=== PATIENT | female | born 1960 | race Two or more races ===

== ENCOUNTER 2016-05-05 10:28 | Emergency (ER) | payer MEDICARE, OTHER ==
[2016-05-05 10:45] VITALS: BP 123/71
[2016-05-05] MEDS ORDERED: ASPIRIN 81 MG TABLET, CHEWABLE PO ONE (10:51)
--- NOTE | 2016-05-05 10:52 | ER Document Report ---
ED Medical Screen (RME) - General Stated Complaint: DIZZINESS Notes: She complains of dizziness, feels like she is going to pass out, and left-sided facial numbness intermittently for the last couple of months. Symptoms have been worse for the last 3 days. Complains of feeling pressure to the back of her head. Denies recent illness. Patient has hypertension, diabetes, and thyroid disease. I have greeted and performed a rapid initial assessment of this patient. A comprehensive ED assessment and evaluation of the patient, analysis of test results and completion of the medical decision making process will be conducted by additional ED providers. TRAVEL OUTSIDE OF THE [place] IN LAST 30 DAYS: No - Related Data Allergies/Adverse Reactions: oxycodone HCl [From Percocet] Allergy (Verified 05/05/16 10:48) THROAT CLOSES Shellfish * [Shellfish] Allergy (Verified 05/05/16 10:48) Hives Past Medical History - Past Medical History Cardiac Medical History: Reports: Hx Hypercholesterolemia, Hx Hypertension Denies: Hx Coronary Artery Disease, Hx Heart Attack Pulmonary Medical History: Reports: Hx Asthma Denies: Hx Bronchitis, Hx COPD, Hx Pneumonia Neurological Medical History: Denies: Hx Cerebrovascular Accident, Hx Seizures Endocrine Medical History: Reports: Hx Diabetes Mellitus Type 2 GI Medical History: Reports: Hx Gastroesophageal Reflux Disease, Hx Hiatal Hernia, Hx Ulcer. Denies: Hx Hepatitis Musculoskeltal Medical History: Denies Hx Arthritis Psychiatric Medical History: Reports: Hx Depression Infectious Medical History: Denies: Hx Hepatitis Past Surgical History: Reports: Hx Hysterectomy, Hx Orthopedic Surgery - bilat foot; R shoudler; bilat hand, Hx Tonsillectomy. Denies: Hx Mastectomy, Hx Open Heart Surgery, Hx Pacemaker - Immunizations Hx Diphtheria, Pertussis, Tetanus Vaccination: Yes - unk Physical Exam - Vital signs Vitals: Temp Pulse Resp BP Pulse Ox 97.7 F 71 20 123/71 96 05/05/16 10:44 05/05/16 10:44 05/05/16 10:44 05/05/16 10:44 05/05/16 10:44 - Respiratory Notes: Lungs clear to auscultation. No respiratory distress. - Cardiovascular Rhythm: Regular Heart sounds: Normal auscultation Course - Vital Signs Vital signs: Temp Pulse Resp BP Pulse Ox 97.7 F 71 20 123/71 96 05/05/16 10:44 05/05/16 10:44 05/05/16 10:44 05/05/16 10:44 05/05/16 10:44
[2016-05-05 11:44] LABS: ABSOLUTE BASOPHILS # (AUTO) 0.1 10^3/uL (0.0-0.2); ABSOLUTE EOSINOPHILS # (AUTO) 0.4 10^3/uL (0.0-0.6); ABSOLUTE LYMPHOCYTES (AUTO) 2.6 10^3/uL (0.5-4.7); ABSOLUTE MONOCYTES (AUTO) 0.5 10^3/uL (0.1-1.4); ABSOLUTE NEUT (AUTO) 4.4 10^3/uL (1.7-8.2); BASOPHILS % (AUTO) 1.5 % (0-2); EOSINOPHILS % (AUTO) 4.7 % (0-6); HEMATOCRIT 41.7 % (36.0-47.0); HEMOGLOBIN 14.1 g/dL (12.0-15.5); HGB HCT DIFFERENCE 0.6; LYMPHOCYTES % (AUTO) 32.5 % (13-45); MEAN CORPUSCULAR HGB CONC 33.9 g/dL (32.0-36.0); MEAN CORPUSCULAR VOLUME 89 fl (80-97); MONOCYTES % (AUTO) 6.8 % (3-13); RED BLOOD COUNT 4.71 10^6/uL (3.72-5.28); RED CELL DISTRIBUTION WIDTH 13.7 % (11.5-14.0); SEGMENTED NEUTROPHILS % (AUTO) 54.5 % (42-78)
[2016-05-05 11:57] LABS: ALANINE AMINOTRANSFERASE 42 U/L (9-52); ALBUMIN 4.3 g/dL (3.5-5.0); ALKALINE PHOSPHATASE 117 U/L (38-126); ANION GAP 14 (5-19); ASPARTATE AMINO TRANSFERASE 28 U/L (14-36); BILIRUBIN,DIRECT 0.3 mg/dL (0.0-0.4); BILIRUBIN,TOTAL 0.8 mg/dL (0.2-1.3); BLOOD UREA NITROGEN 10 mg/dL (7-20); CALCIUM 10.2 mg/dL (8.4-10.2); CARBON DIOXIDE 22 mmol/L (22-30); CHLORIDE 106 mmol/L (98-107); CREATINE KINASE 56 U/L (30-135); CREATININE RESULT 0.55 mg/dL (0.52-1.25); GLUCOSE 191 mg/dL (75-110); POTASSIUM 4.4 mmol/L (3.6-5.0); SODIUM 142.2 mmol/L (137-145); TOTAL PROTEIN 7.5 g/dL (6.3-8.2)
[2016-05-05 11:58] LABS: PROTHROMBIN TIME 11.8 SEC (11.4-15.4)
[2016-05-05 12:15] LABS: CREATINE KINASE MB < 0.22 ng/mL (<4.55); TROPONIN I < 0.012 ng/mL
--- NOTE | 2016-05-05 20:22 | EKG REPORT ---
SEVERITY:- ABNORMAL ECG - SINUS RHYTHM LEFT VENTRICULAR HYPERTROPHY : Confirmed by: João Reis 05-May-2016 20:21:35
== END 2016-05-05 17:35 | disposition left against medical advice (07) ==
LOC: ER 10:28
DX: Z53.9 Procedure and treatment not carried out, unspecified reason (principal); R42 Dizziness and giddiness
CPT/HCPCS: 93005; 99281; 36415; 82553; 82550; 85025; 85610; 80053; 84484; 71010; 93010; A9270

== ENCOUNTER → 2016-09-03 | Outpatient (CLI) | payer MEDICARE, OTHER ==
[2016-09-03 15:15] LABS: ABSOLUTE BASOPHILS # (AUTO) 0.1 10^3/uL (0.0-0.2); ABSOLUTE EOSINOPHILS # (AUTO) 0.3 10^3/uL (0.0-0.6); ABSOLUTE LYMPHOCYTES (AUTO) 3.8 10^3/uL (0.5-4.7); ABSOLUTE MONOCYTES (AUTO) 0.5 10^3/uL (0.1-1.4); ABSOLUTE NEUT (AUTO) 4.3 10^3/uL (1.7-8.2); BASOPHILS % (AUTO) 1.3 % (0-2); EOSINOPHILS % (AUTO) 3.8 % (0-6); HEMATOCRIT 41.6 % (36.0-47.0); HEMOGLOBIN 14.2 g/dL (12.0-15.5); LYMPHOCYTES % (AUTO) 41.8 % (13-45); MEAN CORPUSCULAR HEMOGLOBIN 31.2 pg (27.0-33.4); MEAN CORPUSCULAR HGB CONC 34.1 g/dL (32.0-36.0); MEAN CORPUSCULAR VOLUME 92 fl (80-97); RED BLOOD COUNT 4.55 10^6/uL (3.72-5.28); RED CELL DISTRIBUTION WIDTH 13.3 % (11.5-14.0); SEGMENTED NEUTROPHILS % (AUTO) 47.1 % (42-78); WHITE BLOOD COUNT 9.1 10^3/uL (4.0-10.5)
[2016-09-03 15:16] LABS: APPEARANCE,URINE CLEAR; BILIRUBIN,URINE NEGATIVE (NEGATIVE); GLUCOSE, URINE 50 mg/dL (NEGATIVE); KETONES,URINE NEGATIVE (NEGATIVE); LEUKOCYTE ESTERASE,URINE NEGATIVE (NEGATIVE); NITRITE,URINE NEGATIVE (NEGATIVE); PROTEIN,URINE NEGATIVE (NEGATIVE); URINE SPECIFIC GRAVITY 1.004; UROBILINOGEN,URINE NEGATIVE mg/dL (<2.0)
[2016-09-03 15:37] LABS: ALANINE AMINOTRANSFERASE 43 U/L (9-52); ALBUMIN 4.5 g/dL (3.5-5.0); ALKALINE PHOSPHATASE 118 U/L (38-126); AMYLASE 77 U/L (30-110); ANION GAP 12 (5-19); ASPARTATE AMINO TRANSFERASE 24 U/L (14-36); BILIRUBIN,DIRECT 0.3 mg/dL (0.0-0.4); BILIRUBIN,TOTAL 0.8 mg/dL (0.2-1.3); BLOOD UREA NITROGEN 13 mg/dL (7-20); CALCIUM 10.2 mg/dL (8.4-10.2); CARBON DIOXIDE 26 mmol/L (22-30); CHLORIDE 101 mmol/L (98-107); CREATININE RESULT 0.58 mg/dL (0.52-1.25); GLUCOSE 202 mg/dL (75-110); POTASSIUM 4.8 mmol/L (3.6-5.0); SODIUM 138.5 mmol/L (137-145); TOTAL PROTEIN 7.9 g/dL (6.3-8.2)
== END ==
LOC: OD 14:03
PROVIDERS: ATTEND Specialist
DX: R10.9 Unspecified abdominal pain (principal); K76.0 Fatty (change of) liver, not elsewhere classified
CPT/HCPCS: 36415; 80053; 81001; 82150; 83690; 85025; 87086

== ENCOUNTER 2016-09-10 07:34 | Day surgery (SDC) | payer MEDICARE, OTHER ==
[2016-09-10] MEDS ORDERED: GLYCOPYRROLATE INJ 0.4 MG/2 ML VIAL ONE (07:39)
[2016-09-10] MEDS ORDERED: MIDAZOLAM 2 MG/2 ML INJ ONE (07:39)
[2016-09-10] MEDS ORDERED: NALOXONE HCL INJ/PF 0.4 MG/1 ML SDV ONE (07:39)
[2016-09-10] MEDS ORDERED: ONDANSETRON HCL INJ/PF 4 MG/2 ML SDV ONE (07:39)
[2016-09-10] MEDS ORDERED: EPINEPHRINE INJ 1 MG/10 ML DISP.SYRIN ONE (07:40)
[2016-09-10] MEDS ORDERED: FENTANYL CITRATE INJ/PF 100 MCG/2 ML AMPUL ONE (07:40)
[2016-09-10] MEDS ORDERED: FLUMAZENIL INJ 0.5 MG/5 ML VIAL IV ONE (07:40)
[2016-09-10 09:53] VITALS: BP 113/59
--- NOTE | 2016-09-10 15:29 | OPERATIVE REPORT E ---
Operative Report NAME: CHRIST BERNAL : 1960 AGE: 56Y DATE OF SURGERY: 09/10/2016 ROOM: PREOPERATIVE DIAGNOSES: 1. Abdominal pain. 2. Reflux. POSTOPERATIVE DIAGNOSES: 1. Esophagitis, mild. 2. Diminutive 2 mm polyp mid esophagus, small to biopsy. 3. Gastritis, mild. 4. Duodenitis, mild. 5. No ulcers, no malignancy. PROCEDURES: 1. Esophagoscopy. 2. Gastroscopy. 3. Duodenoscopy. SURGEON: ARELI JOHNSON M.D. TISSUE REMOVED OR ALTERED: Gastric biopsy, H. pylori. ANESTHESIA: Versed 3, fentanyl 100. DESCRIPTION: Baby scope passed under guided vision, no difficulties. Esophagoscopy junction at 35 cm. No hernia. No stricture. No malignancy. In the mid esophagus, there was 2 mm diminutive polyp small to biopsy, benign looking. Gastroscopy: No ulcers. Mild gastritis. Duodenoscopy: Mild duodenitis. PLAN: Awaiting H. pylori biopsy. Consider followup upper scope after EEA because the 2 mm polyp in her mid esophagus. Hold aspirin, nonsteroidal 3 days. Awaiting biopsy results. Consider followup EGD after 1 year. A 2 mm duodenal poly mid esophagus. DICTATING PHYSICIAN: ARELI JOHNSON M.D. [id number] [facility]#: [id number] ID: [id number] JOB#: [id number] ACCT: [id number] cc:WING PETTIT M.D. ARELI JOHNSON M.D. >
--- NOTE | 2016-09-10 15:30 | DISCHARGE SUMMARY E ---
Discharge Summary NAME: CHRIST BERNAL : 1960 AGE: 56Y ADMITTED: 09/10/2016 DISCHARGED: 09/10/2016 HISTORY: The patient is a 56-year-old female with reflux, abdominal pain. MEDICATIONS: 1. Adderall. 2. Adele. 3. BuSpar. 4. Gabapentin. 5. Glucophage. 6. Hyzaar. 7. Lipitor. 8. Baby aspirin. 9. Nexium. 10. ProAir. 11. Synthroid. 12. Toprol. 13. Xanax. HOSPITAL COURSE: Patient presented to us with abdominal pain. Upper scope today shows no ulcers, no malignancy. A 2 mm diminutive polyp mid esophagus with mild esophagitis, gastritis, duodenitis with no ulcers, no bleeding. Recent colonoscopy showing diverticulosis and rectosigmoid polyps. DISCHARGE PLAN: Awaiting biopsy. Patient to see us in the office in the next few days. DICTATING PHYSICIAN: ARELI JOHNSON M.D. [id number] PHY#: [id number] ID: [id number] JOB#: [id number] ACCT: [id number] cc:Moshe MALIN M.D. >
== END 2016-09-10 09:40 | disposition home or self-care (01) ==
LOC: END 07:34
PROVIDERS: ATTEND Specialist
PROC: 0DB68ZX Excision of Stomach, Via Natural or Artificial Opening Endoscopic, Diagnostic (ICD-10-PCS; principal; 2016-09-10 08:00)
DX: K21.0 Gastro-esophageal reflux disease with esophagitis (principal); K31.9 Disease of stomach and duodenum, unspecified; K29.80 Duodenitis without bleeding; K76.0 Fatty (change of) liver, not elsewhere classified; K22.8 Other specified diseases of esophagus; I10 Essential (primary) hypertension; E11.9 Type 2 diabetes mellitus without complications; E03.9 Hypothyroidism, unspecified; M19.90 Unspecified osteoarthritis, unspecified site; F17.210 Nicotine dependence, cigarettes, uncomplicated; Z79.899 Other long term (current) drug therapy; Z79.51 Long term (current) use of inhaled steroids; Z79.82 Long term (current) use of aspirin; Z88.6 Allergy status to analgesic agent; Z88.5 Allergy status to narcotic agent
CPT/HCPCS: 43239; 82962; 88342 ×2; 88305 ×2; J2250; J3010; J2405; J0171; J2310; J3490

== ENCOUNTER → 2016-09-15 | Outpatient (CLI) | payer MEDICARE, OTHER ==
--- NOTE | 2016-09-09 09:32 | HISTORY AND PHYSICAL E ---
History and Physical NAME: CHRIST BERNAL : 1960 AGE: 56Y ADMITTED: 09/10/2016 ROOM: CHIEF COMPLAINT: Abdominal pain, reflux. HISTORY OF PRESENT ILLNESS: The patient does have history of CT showing fatty liver. This was on ultrasound done back in 2005. She has diffuse fatty liver; gallbladder, biliary tree was unremarkable. CT of the abdomen and pelvis; the appendix not visualize. Conclusion fatty liver, otherwise negative. Pelvic ultrasound shows no abnormalities. The patient presented to us now with abdominal pain. She does have sludge in her gallbladder. SOCIAL HISTORY: . She smokes a half pack daily, does not drink. PAST SURGICAL HISTORY: 1. She did have a colonoscopy in the past. 2. She had hysterectomy. REVIEW OF SYSTEMS: CARDIAC: Hypertension. ENDOCRINE: Diabetes. She has hypothyroidism. GASTROINTESTINAL: She does have history of polyps, reflux. HEMATOLOGIC: Anemia as a child. MUSCULOSKELETAL: Osteoarthritis. FAMILY HISTORY: Father's history unknown. Her mom had CA of the esophagus. ALLERGIES: 1. OXYCODONE. 2. IODINE. 3. ACETAMINOPHEN. PHYSICAL EXAMINATION: GENERAL: Pleasant, alert, oriented. Patient of Dr. Pettit. VITAL SIGNS: Blood pressure 140/80, pulse 80, respirations 20, temperature is 98. HEAD, EYES, EARS, NOSE, THROAT: Normal. ABDOMEN: Soft. NEUROLOGIC: Exam negative. CONCLUSION: 1. Fatty liver. 2. Abdominal pain. 3. Gastroesophageal reflux. 4. History of diverticulosis. PLAN: Start her on Bentyl, Zofran. She is scheduled for biliary scan, scheduled for upper endoscopy 09/10/2016. And, she needs to have biliary scan, upper endoscopy. DIAGNOSTIC STUDIES: Colonoscopy done on 2014 showed the following; redundant colon. She did have retrosigmoid polyps and diverticulosis. She did have retrosigmoid polyps, the polyps were hyperplastic benign polyps. DICTATING PHYSICIAN: ARELI JOHNSON M.D. [id number] PHY#: [id number] ID: [id number] JOB#: [id number] ACCT: [id number] cc:WING PETTIT M.D. ARELI JOHNSON M.D. >
--- NOTE | 2016-09-15 17:00 | RADIOLOGY REPORT (SQ) ---
EXAM DESCRIPTION: NM HIDA SCAN WITH CCK COMPLETED DATE/TIME: 09/15/2016 3:24 pm REASON FOR STUDY: ABD PAIN (R10.9) R10.9 UNSPECIFIED ABDOMINAL PAIN COMPARISON: CT abdomen pelvis 02/24/2010 RADIONUCLIDE AND DOSE: DOSAGE RADIONUCLIDE: 5.3 millicuries Tc99m Mebrofenin. DOSAGE CCK: 1.7 micrograms. DOSAGE MORPHINE: Not required. The route of agent administration: Intravenous TECHNIQUE: Serial imaging right upper quadrant up to 60 minutes following injection of radionuclide. CCK injected after gallbladder visualized. LIMITATIONS: None. FINDINGS: LIVER: Normal visualization without areas of photopenia. INTRAHEPATIC BILE DUCTS: Normal size and no delay in visualization. COMMON BILE DUCT: Normal without dilatation. GALLBLADDER: Normal visualization. Calculated ejection fraction of 40%. Normal range is greater th an 35%. PHYSICAL RESPONSE: Patients presenting complaint was reproduced. OTHER: After IV cholecystokinin, there was reflux of activity into the stomach. IMPRESSION: NO CYSTIC OR COMMON DUCT OBSTRUCTION. NORMAL GALLBLADDER EJECTION FRACTION. IV CHOLECYSTOKININ REPRODUCED THE PATIENT'S SYMPTOMS OF NAUSEA AND ABDOMINAL PAIN. ON THE POST CCK I MAGES, THERE IS REFLUX OF BILE ACTIVITY INTO THE STOMACH. TECHNICAL DOCUMENTATION: JOB ID: [id number] [employer]- All Rights Reserved
== END ==
LOC: RAD 12:50
PROVIDERS: ATTEND Specialist
DX: R10.9 Unspecified abdominal pain (principal)
CPT/HCPCS: 78227; A9537; Q9969; J2805

== ENCOUNTER 2017-03-01 09:14 | Emergency (ER) | payer MEDICARE, OTHER ==
[2017-03-01 09:48] VITALS: BP 126/58
[2017-03-01 10:59] LABS: A TYPE INFLUENZA AG NEGATIVE (NEGATIVE); B INFLUENZA AG NEGATIVE (NEGATIVE)
--- NOTE | 2017-03-01 11:28 | ER Document Report ---
HPI - HPI Pain Level: 4 Notes: Patient is a 56-year-old female with a history of asthma, tobacco abuse, diabetes, and hypertension who presents the ED complaining of dry nonproductive cough, intermittent wheezing, nasal congestion/discharge 2 months. Patient states that she did have an antibiotic in January which seemed to have helped, but her illness return. Patient states that she does have an inhaler at home that she uses on occasion. Pt is able to ambulate as usual w/o any worsening symptoms or inability due to breathing issues. Patient also notes vaginal dryness without any bleeding, odor, or discharge. She is otherwise eating and drinking without any difficulties. She is urinating normally and having normal bowel movements. Denies any headache, fever, neck pain, sore throat, chest pain , palpitations, syncope, shortness of breath, dyspnea, abdominal pain, nausea/ vomiting/diarrhea, urinary retention, dysuria, hematuria, or rash. - ROS Notes: REVIEW OF SYSTEMS: CONSTITUTIONAL : Denies fever, chills, or sweats. Denies recent illness. EENT: see hpi. CARDIOVASCULAR: Denies chest pain. Denies palpitations or racing or irregular heart beat. Denies ankle edema. RESPIRATORY: see hpi. Denies shortness of breath, difficulty breathing, or wheezing. GASTROINTESTINAL: Denies abdominal pain or distention. Denies nausea, vomiting , or diarrhea. Denies blood in vomitus, stools, or per rectum. Denies black, tarry stools. Denies constipation. GENITOURINARY: Denies difficulty urinating, painful urination, burning, frequency, blood in urine, or discharge. MUSCULOSKELETAL: Denies back or neck pain or stiffness. Denies joint pain or swelling. SKIN: Denies rash, lesions or sores. NEUROLOGICAL: Denies confusion or altered mental status. Denies passing out or loss of consciousness. Denies dizziness or lightheadedness. Denies headache. Denies problems with gait or speech. Denies sensory loss, numbness, or tingling. Denies seizures. ALL OTHER SYSTEMS REVIEWED AND NEGATIVE. Dictation was performed using [employer] recognition software - DERM Skin Color: Normal Past Medical History - Social History Smoking Status: Current Every Day Smoker Frequency of alcohol use: None Drug Abuse: None Family History: Reviewed & Not Pertinent Patient has suicidal ideation: No Patient has homicidal ideation: No - Past Medical History Cardiac Medical History: Reports: Hx Hypercholesterolemia, Hx Hypertension Denies: Hx Coronary Artery Disease, Hx Heart Attack Pulmonary Medical History: Reports: Hx Asthma Denies: Hx Bronchitis, Hx COPD, Hx Pneumonia Neurological Medical History: Denies: Hx Cerebrovascular Accident, Hx Seizures Endocrine Medical History: Reports: Hx Diabetes Mellitus Type 2 Renal/ Medical History: Denies: Hx Peritoneal Dialysis GI Medical History: Reports: Hx Gastroesophageal Reflux Disease, Hx Hiatal Hernia, Hx Ulcer. Denies: Hx Hepatitis Musculoskeltal Medical History: Reports Hx Arthritis Psychiatric Medical History: Reports: Hx Depression Infectious Medical History: Denies: Hx Hepatitis Past Surgical History: Reports: Hx Hysterectomy, Hx Orthopedic Surgery - bilat foot; R shoudler; bilat hand, Hx Tonsillectomy. Denies: Hx Mastectomy, Hx Open Heart Surgery, Hx Pacemaker - Immunizations Hx Diphtheria, Pertussis, Tetanus Vaccination: No Vertical Provider Document - CONSTITUTIONAL Agree With Documented VS: Yes Notes: PHYSICAL EXAMINATION: GENERAL: Well-appearing, well-nourished and in no acute distress. A&Ox4. Answers questions appropriately in complete sentences w/o difficulty. Pt sitting comfortably in no apparent distress. HEAD: Atraumatic, normocephalic. EYES: Pupils equal round and reactive to light, extraocular movements intact, sclera anicteric, conjunctiva are normal. ENT: EAC clear b/l. TM's intact b/l without erythema, fluid, or perforation. Nares patent and without discharge. oropharynx mild erythema without exudates. 2+ tonsilar hypertrophy without erythema or exudate. No palatine shift. Uvula midline. No tongue protrusion. No drooling, hoarseness, or airway compromise. Moist mucous membranes. No sinus tenderness. NECK: Normal range of motion, supple without lymphadenopathy. No rigidity/ meningismus. LUNGS: Breath sounds clear to auscultation bilaterally and equal. No wheezes rales or rhonchi. HEART: Regular rate and rhythm without murmurs, rubs, gallops. ABDOMEN: Soft, nontender, nondistended abdomen. No guarding, no rebound. No masses appreciated. Normal bowel sounds present. No CVA tenderness bilaterally. NEUROLOGICAL: Normal speech, normal gait. Normal sensory, motor exams PSYCH: Normal mood, normal affect. SKIN: Warm, Dry, normal turgor, no rashes or lesions noted. - INFECTION CONTROL TRAVEL OUTSIDE OF THE [place] IN LAST 30 DAYS: No - RESPIRATORY O2 Sat by Pulse Oximetry: 95 Course - Re-evaluation Re-evalutation: 03/01/17 11:40 Patient is an afebrile, well-hydrated, 56-year-old female who presents to the ED with acute bronchitis/URI. vitals are stable. PE is otherwise unremarkable. Chest x-ray/EKG were unremarkable for any acute pathology. Rapid influenza was negative. No other labs or imaging warranted at this time based on H&P. Patient does have several comorbidities, has had symptoms for 2 mos, and did have previous improvement with antibiotics so I will cover her with a prescription for azithromycin which will help cover atypical bacteria as well. Low suspicion for any ACS, PE, pneumothorax, pericarditis, dissection, respiratory compromise, severe dehydration, sepsis, meningitis, or other systemic emergent condition at this time. Patient is aware that her condition can change from initial presentation and she needs to monitor symptoms closely and seek medical attention for any acute changes. Recommend conservative measures otherwise for symptoms. Recheck with your PCM in 3-5 days. Recheck with OBGYN for vaginal dryness. Return to the ED with any worsening/concerning symptoms otherwise as reviewed in discharge. Patient is in agreement. - Vital Signs Vital signs: Temp Pulse Resp BP Pulse Ox 97.7 F 74 16 126/58 H 95 03/01/17 09:36 03/01/17 09:36 03/01/17 09:36 03/01/17 09:36 03/01/17 09:36 - Laboratory Laboratory results interpreted by me: 03/01/17 10:43 POC Glucose 263 H Discharge - Discharge Clinical Impression: Acute bronchitis Qualifiers: Bronchitis organism: unspecified organism Qualified Code(s): J20.9 - Acute bronchitis, unspecified Condition: Stable Disposition: HOME, SELF-CARE Instructions: Bronchitis ([facility]) Additional Instructions: Maintain adequate fluid intake Take meds as directed tylenol/ibuprofen as needed over the counter cold medication as needed for symptoms Humidified air may help F/u: with your PCM in 3-5 days for a recheck Recheck with OBGYN x1 week Return to the ED with any fever, worsening pain, chest pain, palpitations, syncope, worsening RUSSELL, neck pain/stiffness, shortness of breath, wheezing, drooling, trouble swallowing/breathing, abdominal pain, n/v/d, rash, or worsening/concerning symptoms otherwise. Prescriptions: Azithromycin [Zithromax 250 mg Tablet] 250 mg PO ASDIR PRN #6 tablet PRN Reason: Forms: Elevated Blood Pressure, Smoking Cessation Education Referrals: [facility] [Provider Group] - Follow up in 1 week [facility] [Provider Group] - Follow up in 3-5 days
--- NOTE | 2017-03-01 11:37 | RADIOLOGY REPORT (SQ) ---
EXAM DESCRIPTION: CHEST PA/LAT COMPLETED DATE/TIME: 03/01/2017 11:10 am REASON FOR STUDY: cough COMPARISON: 05/05/2016 EXAM PARAMETERS: NUMBER OF VIEWS: two views TECHNIQUE: Digital Frontal and Lateral radiographic views of the chest acquired. RADIATION DOSE: NA LIMITATIONS: none FINDINGS: LUNGS AND PLEURA: No opacities, masses or pneumothorax. No pleural effusion. MEDIASTINUM AND HILAR STRUCTURES: No masses or contour abnormalities. HEART AND VASCULAR STRUCTURES: Heart normal size. No evidence for failure. BONES: No acute findings. HARDWARE: None in the chest. OTHER: No other significant finding. IMPRESSION: NO SIGNIFICANT RADIOGRAPHIC FINDING IN THE CHEST. TECHNICAL DOCUMENTATION: JOB ID: [id number] [email or web address]- All Rights Reserved
--- NOTE | 2017-03-01 18:34 | EKG REPORT ---
SEVERITY:- NORMAL ECG - SINUS RHYTHM : Confirmed by: João Reis 01-Mar-2017 18:32:34
== END 2017-03-01 11:52 | disposition home or self-care (01) ==
LOC: ER 09:14
DX: J20.9 Acute bronchitis, unspecified (principal); J06.9 Acute upper respiratory infection, unspecified; J45.909 Unspecified asthma, uncomplicated; R05 Cough; J35.1 Hypertrophy of tonsils; R39.89 Other symptoms and signs involving the genitourinary system; I10 Essential (primary) hypertension; E11.9 Type 2 diabetes mellitus without complications; F17.200 Nicotine dependence, unspecified, uncomplicated; Z90.710 Acquired absence of both cervix and uterus
CPT/HCPCS: 71046; 82962; 87804; 93005; 93010; 99283

== ENCOUNTER 2017-08-06 13:07 | Emergency (ER) | payer MEDICARE, OTHER ==
[2017-08-06] MEDS ORDERED: DIAZEPAM 2 MG TABLET PO ONE (13:52)
[2017-08-06] MEDS ORDERED: MECLIZINE HCL 25 MG TABLET PO ONE (13:52)
[2017-08-06] MEDS ORDERED: METOCLOPRAMIDE HCL INJ/PF 10 MG/2 ML SDV IV ONE (13:52)
[2017-08-06] MEDS ORDERED: NORMAL SALINE 1000 ML 1,000 ML IV ONE ×2 (13:52→15:41)
--- NOTE | 2017-08-06 14:04 | ER Document Report ---
ED Medical Screen (RME) - General Chief Complaint: High Blood Sugar Stated Complaint: BLOOD SUGAR PROBLEM Time Seen by Provider: 08/06/17 13:47 Notes: RAPID MEDICAL EVALUATION DISCLOSURE I have seen this patient as part of a Rapid Medical Evaluation and, if applicable, placed any initially appropriate orders. The patient will be seen and fully evaluated, including a full history and physical exam, by a provider ( in Main ED or Fast Track) when a room becomes available. 49-year-old female ABDs here with complaints of elevated blood sugar of 490 this morning. She took some of her insulin and the sugar went down to 450 however it is still high. She has had some cough and sinus symptoms over the past 30 days but has not been on any antibiotics. She has not had any vomiting diarrhea. Today she started to experience some chest pain worse with walking approximately 5 hours ago with some slight shortness of breath. Denies any history of MD or coronary stents. EXAM CTAB RRR Minimal right parasternal border TTP TRAVEL OUTSIDE OF THE [place] IN LAST 30 DAYS: No - Related Data Allergies/Adverse Reactions: oxycodone HCl [From Percocet] Allergy (Verified 08/06/17 13:11) THROAT CLOSES Shellfish * [Shellfish] Allergy (Verified 08/06/17 13:11) Hives Past Medical History - Social History Chew tobacco use (# tins/day): No Frequency of alcohol use: None Drug Abuse: None - Past Medical History Cardiac Medical History: Reports: Hx Hypercholesterolemia, Hx Hypertension Denies: Hx Coronary Artery Disease, Hx Heart Attack Pulmonary Medical History: Reports: Hx Asthma Denies: Hx Bronchitis, Hx COPD, Hx Pneumonia Neurological Medical History: Denies: Hx Cerebrovascular Accident, Hx Seizures Endocrine Medical History: Reports: Hx Diabetes Mellitus Type 2 Renal/ Medical History: Denies: Hx Peritoneal Dialysis GI Medical History: Reports: Hx Gastroesophageal Reflux Disease, Hx Hiatal Hernia, Hx Ulcer. Denies: Hx Hepatitis Musculoskeltal Medical History: Reports Hx Arthritis Psychiatric Medical History: Reports: Hx Depression Infectious Medical History: Denies: Hx Hepatitis Past Surgical History: Reports: Hx Hysterectomy, Hx Orthopedic Surgery - bilat foot; R shoudler; bilat hand, Hx Tonsillectomy. Denies: Hx Mastectomy, Hx Open Heart Surgery, Hx Pacemaker - Immunizations Hx Diphtheria, Pertussis, Tetanus Vaccination: No Physical Exam - Vital signs Vitals: Temp Pulse Resp BP Pulse Ox 97.9 F 84 16 126/70 H 91 L 08/06/17 13:28 08/06/17 13:28 08/06/17 13:28 08/06/17 13:28 08/06/17 13:28 Course - Vital Signs Vital signs: Temp Pulse Resp BP Pulse Ox 97.9 F 84 16 126/70 H 91 L 08/06/17 13:28 08/06/17 13:28 08/06/17 13:28 08/06/17 13:28 08/06/17 13:28
--- NOTE | 2017-08-06 14:43 | RADIOLOGY REPORT (SQ) ---
EXAM DESCRIPTION: CHEST 2 VIEWS COMPLETED DATE/TIME: 08/06/2017 2:18 pm REASON FOR STUDY: CP SOB COMPARISON: None. EXAM PARAMETERS: NUMBER OF VIEWS: two views TECHNIQUE: Digital Frontal and Lateral radiographic views of the chest acquired. 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 No acute opacities, masses or pneumothorax. No pleural effusion. MEDIASTINUM AND HILAR STRUCTURES: No masses or contour abnormalities. HEART AND VASCULAR STRUCTURES: Heart normal size. No evidence for failure. BONES: Osteopenia. Moderate thoracic spondylosis. HARDWARE: None in the chest. OTHER: No other significant finding. IMPRESSION: NO ACUTE RADIOGRAPHIC FINDING IN THE CHEST. TECHNICAL DOCUMENTATION: JOB ID: [id number] [email or web address]- All Rights Reserved Reading location - IP/workstation name: [email or web address]
[2017-08-06 14:54] LABS: ABSOLUTE BASOPHILS # (AUTO) 0.1 10^3/uL (0.0-0.2); ABSOLUTE EOSINOPHILS # (AUTO) 0.3 10^3/uL (0.0-0.6); ABSOLUTE LYMPHOCYTES (AUTO) 3.8 10^3/uL (0.5-4.7); ABSOLUTE MONOCYTES (AUTO) 0.6 10^3/uL (0.1-1.4); ABSOLUTE NEUT (AUTO) 5.1 10^3/uL (1.7-8.2); BASOPHILS % (AUTO) 1.3 % (0-2); EOSINOPHILS % (AUTO) 3.4 % (0-6); HEMATOCRIT 45.1 % (36.0-47.0); HEMOGLOBIN 15.7 g/dL (12.0-15.5); LYMPHOCYTES % (AUTO) 38.2 % (13-45); MEAN CORPUSCULAR HEMOGLOBIN 31.5 pg (27.0-33.4); MEAN CORPUSCULAR HGB CONC 34.9 g/dL (32.0-36.0); MEAN CORPUSCULAR VOLUME 90 fl (80-97); PLATELET COUNT 320 10^3/uL (150-450); RED BLOOD COUNT 4.99 10^6/uL (3.72-5.28); RED CELL DISTRIBUTION WIDTH 13.9 % (11.5-14.0); SEGMENTED NEUTROPHILS % (AUTO) 51.1 % (42-78); TOTAL CELLS COUNTED % (AUTO) 100 %; WHITE BLOOD COUNT 9.9 10^3/uL (4.0-10.5)
[2017-08-06 14:57] LABS: VENOUS BLOOD BASE EXCESS -0.4 mmol/L; VENOUS BLOOD HCO3 23.4 mmol/L (20-32); VENOUS BLOOD PCO2 36.3 mmHg (35-63); VENOUS BLOOD PH 7.43 (7.30-7.42)
[2017-08-06 15:00] LABS: APPEARANCE,URINE SLIGHTLY-CLOUDY; BILIRUBIN,URINE NEGATIVE (NEGATIVE); COLOR,URINE STRAW; GLUCOSE, URINE >=500 mg/dL (NEGATIVE); KETONES,URINE TRACE mg/dL (NEGATIVE); LEUKOCYTE ESTERASE,URINE TRACE (NEGATIVE); NITRITE,URINE NEGATIVE (NEGATIVE); PROTEIN,URINE NEGATIVE (NEGATIVE); URINE SPECIFIC GRAVITY 1.022; UROBILINOGEN,URINE NEGATIVE mg/dL (<2.0)
[2017-08-06 15:17] LABS: ALANINE AMINOTRANSFERASE 40 U/L (9-52); ALBUMIN 4.6 g/dL (3.5-5.0); ALKALINE PHOSPHATASE 139 U/L (38-126); ANION GAP 14 (5-19); ASPARTATE AMINO TRANSFERASE 39 U/L (14-36); BILIRUBIN,DIRECT 0.5 mg/dL (0.0-0.4); BILIRUBIN,TOTAL 0.8 mg/dL (0.2-1.3); BLOOD UREA NITROGEN 20 mg/dL (7-20); CALCIUM 9.8 mg/dL (8.4-10.2); CARBON DIOXIDE 24 mmol/L (22-30); CHLORIDE 97 mmol/L (98-107); PHOSPHORUS 4.7 mg/dL (2.5-4.5); POTASSIUM 4.3 mmol/L (3.6-5.0); TOTAL PROTEIN 8.1 g/dL (6.3-8.2)
[2017-08-06 15:30] LABS: GLUCOSE 480 mg/dL (75-110)
[2017-08-06] MEDS ORDERED: INSULIN REG, HUMAN 100 UNIT/ML 3 ML VIAL (PYX) SUBCUT ONE (15:39)
--- NOTE | 2017-08-06 16:11 | ER Document Report ---
ED General - General Chief Complaint: High Blood Sugar Stated Complaint: BLOOD SUGAR PROBLEM Time Seen by Provider: 08/06/17 13:47 TRAVEL OUTSIDE OF THE [place] IN LAST 30 DAYS: No - HPI Notes: Patient is a 57-year-old female with a history of diabetes- on insulin and p.o. medication, hypertension, hypercholesterolemia who presents to the ED complaining of elevated blood glucose today with burning in her epigastrium/ stomach (currently improved), 1 episode of diarrhea, and a very mild chest soreness to the right superior side. Patient states that her chest soreness started this morning. She still eating and drinking without difficulties. She is urinating normally and having normal bowel movements. She denies any other significant cardiopulmonary medical history. Denies any prolonged immobilization, recent surgery/trauma, IV drug use, cancer, previous DVT/PE, hormone use. Pt is ambulatory w/o any BRAUN or worsening pain. Denies any headache, fever, neck pain, URI, sore throat, palpitations, syncope, cough, shortness of breath, wheeze, dyspnea, nausea/vomiting, melena, hematochezia, urinary retention, dysuria, hematuria, back pain, loss of control of bowel or bladder, numbness/tingling, saddle anesthesia, muscle paralysis/weakness, or rash. - Related Data Allergies/Adverse Reactions: oxycodone HCl [From Percocet] Allergy (Verified 08/06/17 13:11) THROAT CLOSES Shellfish * [Shellfish] Allergy (Verified 08/06/17 13:11) Hives Past Medical History - Social History Smoking Status: Current Every Day Smoker Chew tobacco use (# tins/day): No Frequency of alcohol use: None Drug Abuse: None Family History: Reviewed & Not Pertinent Patient has suicidal ideation: No Patient has homicidal ideation: No - Past Medical History Cardiac Medical History: Reports: Hx Hypercholesterolemia, Hx Hypertension Denies: Hx Coronary Artery Disease, Hx Heart Attack Pulmonary Medical History: Reports: Hx Asthma Denies: Hx Bronchitis, Hx COPD, Hx Pneumonia Neurological Medical History: Denies: Hx Cerebrovascular Accident, Hx Seizures Endocrine Medical History: Reports: Hx Diabetes Mellitus Type 2 Renal/ Medical History: Denies: Hx Peritoneal Dialysis GI Medical History: Reports: Hx Gastroesophageal Reflux Disease, Hx Hiatal Hernia, Hx Ulcer. Denies: Hx Hepatitis Musculoskeltal Medical History: Reports Hx Arthritis Psychiatric Medical History: Reports: Hx Depression Infectious Medical History: Denies: Hx Hepatitis Past Surgical History: Reports: Hx Hysterectomy, Hx Orthopedic Surgery - bilat foot; R shoudler; bilat hand, Hx Tonsillectomy. Denies: Hx Mastectomy, Hx Open Heart Surgery, Hx Pacemaker - Immunizations Hx Diphtheria, Pertussis, Tetanus Vaccination: No Review of Systems - Review of Systems -: Yes All other systems reviewed and negative Physical Exam - Vital signs Vitals: Temp Pulse Resp BP Pulse Ox 97.9 F 84 16 126/70 H 91 L 08/06/17 13:28 08/06/17 13:28 08/06/17 13:28 08/06/17 13:28 08/06/17 13:28 - Notes Notes: PHYSICAL EXAMINATION: GENERAL: Well-appearing, well-nourished and in no acute distress. HEAD: Atraumatic, normocephalic. EYES: Pupils equal round and reactive to light, extraocular movements intact, sclera anicteric, conjunctiva are normal. ENT: Nares patent and without discharge. oropharynx clear without exudates. No tonsilar hypertrophy or erythema. Moist mucous membranes. NECK: Normal range of motion, supple without lymphadenopathy Chest: + tenderness rt superior chest wall, correlates with pain described/ reproducible. LUNGS: Breath sounds clear to auscultation bilaterally and equal. No wheezes rales or rhonchi. HEART: IRR without murmurs, rubs, gallops. ABDOMEN: Soft, nontender, nondistended abdomen. No guarding, no rebound. No masses appreciated. Normal bowel sounds present. No CVA tenderness bilaterally. Musculoskeletal: FROM to passive/active. Strength 5+/5. Extremities: No cyanosis, clubbing, or edema b/l. Peripheral pulses 2+. Capillary refill less than 3 seconds. NEUROLOGICAL: Cranial nerves grossly intact. Normal speech, normal gait. PSYCH: Normal mood, normal affect. SKIN: Warm, Dry, normal turgor, no rashes or lesions noted. Course - Re-evaluation Re-evalutation: 08/06/17 17:56 Glucose now 302. Pt currently asymptomatic w/o any CP. 08/06/17 18:59 Patient is an afebrile, well-hydrated, 57-year-old female who presents to the ED with elevated blood glucose and chest pain which I suspect is primarily to his chest wall. Vitals are acceptable without any significant tachycardia, tachypnea, or hypoxia. PE is otherwise unremarkable aside from the reproducible chest wall tenderness. Patient has a heart score of 3 and a wells score of 0. CBC, CMP, cardiac enzymes 2/EKG, VBG, chest x-ray were unremarkable for any acute pathology. See UA results. Patient is nontoxic- appearing, asymptomatic, and is tolerating p.o. without any difficulties. Patient was given 15 units of insulin and a liter of fluids which did improve her glucose to 302. Low suspicion for any DKA, ACS, PE, pneumothorax, pericarditis, dissection, respiratory compromise, severe dehydration, sepsis, meningitis, or other systemic emergent condition at this time. Patient is aware that her condition can change from initial presentation and she needs to monitor symptoms closely and seek medical attention for any acute changes. Recommend conservative measures for symptoms. Recheck with your PCM in 3-5 days. Return to the ED with any worsening/concerning symptoms otherwise as reviewed in discharge. Patient is in agreement. - Vital Signs Vital signs: Temp Pulse Resp BP Pulse Ox 97.9 F 84 17 131/60 H 95 08/06/17 13:28 08/06/17 13:28 08/06/17 18:13 08/06/17 18:13 08/06/17 18:13 - Laboratory Result Diagrams: 08/06/17 14:35 08/06/17 14:35 Laboratory results interpreted by me: 08/06/17 08/06/17 08/06/17 14:35 14:35 14:35 Hgb 15.7 H VBG pH Sodium 135.0 L Chloride 97 L Glucose 480 H* POC Glucose Phosphorus 4.7 H Direct Bilirubin 0.5 H AST 39 H Alkaline Phosphatase 139 H Urine Glucose (UA) >=500 H Urine Ketones TRACE H Ur Leukocyte Esterase TRACE H 08/06/17 08/06/17 14:50 17:34 Hgb VBG pH 7.43 H Sodium Chloride Glucose POC Glucose 302 H Phosphorus Direct Bilirubin AST Alkaline Phosphatase Urine Glucose (UA) Urine Ketones Ur Leukocyte Esterase Discharge - Discharge Clinical Impression: Blood glucose elevated, Chest wall pain Chest pain Qualifiers: Chest pain type: unspecified Qualified Code(s): R07.9 - Chest pain, unspecified Condition: Stable Disposition: HOME, SELF-CARE Instructions: Chest Wall Pain ([facility]), Chest Pain of Unclear Cause ([facility]) Additional Instructions: Maintain adequate fluid and food intake Take home medications as directed Low sodium/fat/glucose/carb diet Exercise regularly Weight control Monitor blood pressure daily and keep a log Monitor blood glucose twice daily and keep a log Monitor symptoms for any acute changes Recheck with your PCM in 3-5 days Consider a follow-up with cardiology Return to the ED with any worsening symptoms and/or development of fever, headache, chest pain, palpitations, syncope, shortness of breath, trouble breathing, abdominal pain, n/v/d, blood in stool/urine, loss of control of bowel /bladder, urinary retention, muscle weakness/paralysis, numbness/tingling, or other worsening symptoms that are concerning to you. Forms: Elevated Blood Pressure Referrals: AHMET LAZO MD [ACTIVE STAFF] - Follow up as needed
[2017-08-06 19:08] VITALS: BP 122/63
--- NOTE | 2017-08-07 00:18 | EKG REPORT ---
SEVERITY:- NORMAL ECG - SINUS RHYTHM : Confirmed by: Migdalia Fournier MD 07-Aug-2017 00:16:35
== END 2017-08-06 19:47 | disposition home or self-care (01) ==
LOC: ER 13:07
DX: E11.65 Type 2 diabetes mellitus with hyperglycemia (principal); E78.00 Pure hypercholesterolemia, unspecified; R10.13 Epigastric pain; R19.7 Diarrhea, unspecified; R07.9 Chest pain, unspecified; I10 Essential (primary) hypertension; Z79.84 Long term (current) use of oral hypoglycemic drugs; Z88.6 Allergy status to analgesic agent; Z91.013 Allergy to seafood; Z90.710 Acquired absence of both cervix and uterus
CPT/HCPCS: 93005; 99285; 96360; 36415; 82962; 83735; 84100; 85025; 80053; 81001; 84484; 82803; 71046; 93010; A9270; J7030; J1815

== ENCOUNTER 2017-10-06 09:10 | Day surgery (SDC) | payer MEDICARE, OTHER ==
[2017-10-06] MEDS ORDERED: DIPHENHYDRAMINE HCL 50 MG/ML VIAL ONE (09:26)
[2017-10-06] MEDS ORDERED: GLUCAGON,HUMAN RECOMB 1 MG INJ ONE (09:26)
[2017-10-06] MEDS ORDERED: ONDANSETRON HCL INJ/PF 4 MG/2 ML SDV ONE (09:26)
[2017-10-06] MEDS ORDERED: FENTANYL CITRATE INJ/PF 100 MCG/2 ML AMPUL ONE (09:26)
[2017-10-06] MEDS ORDERED: EPINEPHRINE INJ 1 MG/10 ML DISP.SYRIN ONE (09:26)
[2017-10-06] MEDS ORDERED: FLUMAZENIL INJ 0.5 MG/5 ML VIAL ONE (09:26)
[2017-10-06] MEDS ORDERED: NALOXONE HCL INJ/PF 0.4 MG/1 ML SDV ONE (09:26)
[2017-10-06] MEDS: MIDAZOLAM 2 MG/2 ML INJ ONE ×2 (10:01→10:05)
--- NOTE | 2017-10-06 10:10 | Operative Report ---
Operative Report DATE OF SURGERY: 10/06/17 Operative Report: The risks benefits and alternatives of the procedure explained to the patient in detail and informed consent is obtained.A GIF Olympus video scope was inserted into the patient's mouth and hypopharynx, the esophagus is identified intubated and insufflated, the scope was then advanced through the esophagus stomach and duodenum, retroflexion maneuver is done, the esophagus stomach and first and second portions of the duodenum examined PREOPERATIVE DIAGNOSIS: Gastroesophageal reflux disease POSTOPERATIVE DIAGNOSIS: Gastritis status post biopsy rule out Helicobacter pylori. Duodenitis. Hiatal hernia OPERATION: EGD with biopsy SURGEON: KAVITA STROUD ANESTHESIA: Moderate Sedation - 4 mg of Versed, 50 mcg of fentanyl. Conscious sedation monitoring time 30 minutes. TISSUE REMOVED OR ALTERED: As noted above. COMPLICATIONS: None. ESTIMATED BLOOD LOSS: None. INTRAOPERATIVE FINDINGS: As noted above. PROCEDURE: Patient tolerated procedure well. No immediate postprocedure complications are noted. Patient discharged in good condition. Discharge date 10/06/2017. Discharge diet: Regular. Discharge activity: Regular. 2-3 week follow-up to discuss findings. Patient is instructed call the office or proceed to the emergency room should there be any further problems or questions. Wait on the pathology.
[2017-10-06 11:11] VITALS: BP 93/59
== END 2017-10-06 11:20 | disposition home or self-care (01) ==
LOC: END 09:10
PROVIDERS: ATTEND Internal Medicine Gastroenterology
DX: K21.9 Gastro-esophageal reflux disease without esophagitis (principal); K29.80 Duodenitis without bleeding; K44.9 Diaphragmatic hernia without obstruction or gangrene; K29.50 Unspecified chronic gastritis without bleeding; F17.210 Nicotine dependence, cigarettes, uncomplicated; E11.9 Type 2 diabetes mellitus without complications; I48.91 Unspecified atrial fibrillation; E03.8 Other specified hypothyroidism; M19.90 Unspecified osteoarthritis, unspecified site; Z79.899 Other long term (current) drug therapy; Z79.51 Long term (current) use of inhaled steroids; Z79.84 Long term (current) use of oral hypoglycemic drugs; Z79.82 Long term (current) use of aspirin
CPT/HCPCS: 43239; 82962; 88305 ×2; J2250; J3010; J0171; J1200; J1610; J2310; J2405; J3490

== ENCOUNTER → 2018-04-19 | Outpatient (CLI) | payer MEDICARE, OTHER ==
--- NOTE | 2018-04-19 09:11 | WOMENS IMAGING REPORT ---
EXAM DESCRIPTION: U/S ABDOMEN LIMITED COMPLETED DATE/TIME: 04/19/2018 8:16 am REASON FOR STUDY: R10.11 RIGHT UPPER QUADRANT PAIN R10.11 RIGHT UPPER QUADRANT PAIN COMPARISON: CT abdomen pelvis 02/24/2010 TECHNIQUE: Dynamic and static grayscale images acquired of the abdomen and recorded on PACS. Additio nal selected color Doppler and spectral images recorded. LIMITATIONS: Midline bowel gas, body habitus FINDINGS: PANCREAS: Not well seen LIVER: Normal size and echogenicity. No masses. No biliary ductal dilatation. LIVER VASCULATURE: Normal directional flow of the main portal vein and hepatic veins. GALLBLADDER: No stones. Normal wall thickness. No pericholecystic fluid. ULTRASOUND-DETECTED CEBALLOS'S SIGN: Negative. INTRAHEPATIC DUCTS AND COMMON DUCT: CBD and intrahepatic ducts normal caliber. No filling defects. INFERIOR VENA CAVA: Normal flow. AORTA: No aneurysm. RIGHT KIDNEY: Normal size. Normal echogenicity. No solid or suspicious masses. No hydronephrosis. No calcifications. PERITONEAL AND RIGHT PLEURAL SPACE: No ascites or effusions. OTHER: No other significant findings. IMPRESSION: Pancreas not well seen. Otherwise unremarkable right upper quadrant ultrasound. TECHNICAL DOCUMENTATION: JOB ID: [id number] [employer]- All Rights Reserved Reading location - IP/workstation name: [email or web address]
== END ==
LOC: WI 07:45
PROVIDERS: ATTEND Student in an Organized Health Care Education/Training Program
DX: R10.11 Right upper quadrant pain (principal)
CPT/HCPCS: 76705

== ENCOUNTER 2018-05-17 10:21 | Day surgery (SDC) | payer MEDICARE, OTHER ==
[2018-05-17 11:32] LABS: POTASSIUM 4.2 mmol/L (3.6-5.0)
[2018-05-17] MEDS ORDERED: PROPOFOL INJ 200 MG/20 ML VIAL IV ONE (11:38)
[2018-05-17] MEDS ORDERED: MEPERIDINE HCL/PF INJ 25 MG/1 ML DISP.SYRIN IV PRN (13:13)
[2018-05-17] MEDS ORDERED: DIPHENHYDRAMINE HCL 50 MG/ML VIAL IV PRN ×2 (13:13→13:42)
--- NOTE | 2018-05-17 14:38 | Operative Report ---
Operative Report DATE OF SURGERY: 05/17/18 Operative Report: The risks, benefits and alternatives of the procedure including the risk of bleeding, perforation requiring surgery has been explained to the patient in detail and informed consent has been obtained. Patient is taken back to the operating room and placed in the left, lateral decubital position. Timeout was called. Propofol medication is administered. Rectal examination is done which did not reveal any masses, tears or fissures. An Olympus videoscope was introduced into the patient's rectum. The scope was then carefully advanced all the way to the cecum. The cecum was identified by the usual anatomical landmarks including the ileocecal valve as well as the appendiceal office. Photodocumentation is obtained. The scope was then sequentially pulled back via the various segments of the colon including the ascending colon, hepatic flexure, transverse colon, splenic flexure, descending colon and finally into the rectosigmoid portions of the colon. Retroflexion maneuver was performed. PREOPERATIVE DIAGNOSIS: Abdominal pain rule out etiology POSTOPERATIVE DIAGNOSIS: Right-sided colon inflammation status post biopsy. Diverticulosis without any evidence of diverticulitis. Internal hemorrhoids. Colon polyp that is in the sigmoid removed via biopsy forceps OPERATION: Colonoscopy with biopsy SURGEON: KAVITA STROUD ANESTHESIA: LMAC TISSUE REMOVED OR ALTERED: As noted above. COMPLICATIONS: None. ESTIMATED BLOOD LOSS: None. INTRAOPERATIVE FINDINGS: As noted above. PROCEDURE: Patient tolerated the procedure well. No immediate postprocedure complications are noted. Patient discharged in good condition. Discharge date 05/17/2018. Discharge diet: Regular. Discharge activity: Regular. 2-3-week follow-up to discuss findings. Patient is instructed call the office or proceed to the emergency room should there be any further proximal questions. We will wait on pathology.
[2018-05-17 17:27] VITALS: BP 114/89
== END 2018-05-17 14:35 | disposition home or self-care (01) ==
LOC: OROUT 10:21
PROVIDERS: ATTEND Internal Medicine Gastroenterology
DX: K52.9 Noninfective gastroenteritis and colitis, unspecified (principal); K57.30 Diverticulosis of large intestine without perforation or abscess without bleeding; K64.8 Other hemorrhoids; K63.5 Polyp of colon; F17.210 Nicotine dependence, cigarettes, uncomplicated; I10 Essential (primary) hypertension; Z86.73 Personal history of transient ischemic attack (TIA), and cerebral infarction without residual deficits; E11.9 Type 2 diabetes mellitus without complications; Z79.82 Long term (current) use of aspirin; I48.91 Unspecified atrial fibrillation; E03.9 Hypothyroidism, unspecified; Z79.51 Long term (current) use of inhaled steroids; Z79.84 Long term (current) use of oral hypoglycemic drugs; Z79.4 Long term (current) use of insulin; Z88.5 Allergy status to narcotic agent; Z79.899 Other long term (current) drug therapy
CPT/HCPCS: 45380; 36415; 82947; 84132; 88305 ×2; J2704; 811

== ENCOUNTER 2018-05-25 13:55 | Emergency (ER) | payer MEDICARE, OTHER ==
[2018-05-25] MEDS ORDERED: ONDANSETRON HCL INJ/PF 4 MG/2 ML SDV IV ONE (14:25)
--- NOTE | 2018-05-25 14:25 | ER Document Report ---
ED Medical Screen (RME) - General Chief Complaint: Abdominal Pain Stated Complaint: ABDOMINAL PAIN Time Seen by Provider: 05/25/18 14:20 Primary Care Provider: FLORENTIN DYER DO [Primary Care Provider] - Follow up as needed Mode of Arrival: Wheelchair Information source: Patient Notes: Patient is a 58-year-old female who presents to the emergency department with chief complaint of abdominal distention that is been going on for 1 month. Patient also complains of nausea, vomiting and diarrhea. Denies fever. Patient states she was seen last week for a colonoscopy by Dr. Dawson, states that the pain has gotten worse since then. Pain is located in the left upper and left lower quadrants. Exam: Tenderness to palpation to left upper and lower quadrants. I have greeted and performed a rapid initial assessment of this patient. A comprehensive ED assessment and evaluation of the patient, analysis of test results and completion of the medical decision making process will be conducted by additional ED providers. Dictation of this chart was performed using voice recognition software; therefore, there may be some unintended grammatical errors. TRAVEL OUTSIDE OF THE [place] IN LAST 30 DAYS: No - Related Data Allergies/Adverse Reactions: oxycodone HCl [From Percocet] Allergy (Severe, Verified 05/25/18 14:15) THROAT CLOSES Shellfish * [Shellfish] Allergy (Mild, Verified 05/25/18 14:15) Hives Past Medical History - Social History Frequency of alcohol use: None Drug Abuse: None - Past Medical History Cardiac Medical History: Reports: Hx Atrial Fibrillation, Hx Hypercholesterolemia, Hx Hypertension Denies: Hx Coronary Artery Disease, Hx Heart Attack Pulmonary Medical History: Reports: Hx Asthma Denies: Hx Bronchitis, Hx COPD, Hx Pneumonia Neurological Medical History: Denies: Hx Cerebrovascular Accident, Hx Seizures Endocrine Medical History: Reports: Hx Diabetes Mellitus Type 2 Renal/ Medical History: Denies: Hx Peritoneal Dialysis GI Medical History: Reports: Hx Gastroesophageal Reflux Disease, Hx Hiatal Angel ia, Hx Ulcer - bleeding. Denies: Hx Hepatitis Musculoskeltal Medical History: Reports Hx Arthritis Psychiatric Medical History: Reports: Hx Depression Infectious Medical History: Denies: Hx Hepatitis Past Surgical History: Reports: Hx Hysterectomy, Hx Orthopedic Surgery - right shoulder, b/l great toe, right thumb x2, Hx Tonsillectomy. Denies: Hx Mastectomy, Hx Open Heart Surgery, Hx Pacemaker - Immunizations Hx Diphtheria, Pertussis, Tetanus Vaccination: No Influenza Administration Date for 11/2016 - 04/2017 Season: 12/09/16 Physical Exam - Vital signs Vitals: Temp Pulse Resp BP Pulse Ox 97.6 F 91 20 142/61 H 97 05/25/18 14:08 05/25/18 14:08 05/25/18 14:08 05/25/18 14:08 05/25/18 14:08 Course - Vital Signs Vital signs: Temp Pulse Resp BP Pulse Ox 97.6 F 91 20 142/61 H 97 05/25/18 14:08 05/25/18 14:08 05/25/18 14:08 05/25/18 14:08 05/25/18 14:08 Doctor's Discharge - Discharge Referrals: FLORENTIN DYER DO [Primary Care Provider] - Follow up as needed
[2018-05-25] MEDS ORDERED: NORMAL SALINE 1000 ML 1,000 ML IV ONE (14:26)
[2018-05-25 15:34] LABS: ABSOLUTE BASOPHILS # (AUTO) 0.1 10^3/uL (0.0-0.2); ABSOLUTE EOSINOPHILS # (AUTO) 0.4 10^3/uL (0.0-0.6); ABSOLUTE LYMPHOCYTES (AUTO) 3.6 10^3/uL (0.5-4.7); ABSOLUTE MONOCYTES (AUTO) 0.5 10^3/uL (0.1-1.4); ABSOLUTE NEUT (AUTO) 4.2 10^3/uL (1.7-8.2); BASOPHILS % (AUTO) 1.1 % (0-2); EOSINOPHILS % (AUTO) 4.9 % (0-6); HEMATOCRIT 43.5 % (36.0-47.0); HEMOGLOBIN 15.1 g/dL (12.0-15.5); LYMPHOCYTES % (AUTO) 41.1 % (13-45); MEAN CORPUSCULAR HEMOGLOBIN 31.8 pg (27.0-33.4); MEAN CORPUSCULAR HGB CONC 34.8 g/dL (32.0-36.0); MEAN CORPUSCULAR VOLUME 91 fl (80-97); MONOCYTES % (AUTO) 5.7 % (3-13); PLATELET COUNT 317 10^3/uL (150-450); RED BLOOD COUNT 4.76 10^6/uL (3.72-5.28); RED CELL DISTRIBUTION WIDTH 13.8 % (11.5-14.0); SEGMENTED NEUTROPHILS % (AUTO) 47.2 % (42-78); TOTAL CELLS COUNTED % (AUTO) 100 %; WHITE BLOOD COUNT 8.8 10^3/uL (4.0-10.5)
[2018-05-25 15:36] LABS: APPEARANCE,URINE CLEAR; BILIRUBIN,URINE NEGATIVE (NEGATIVE); COLOR,URINE YELLOW; GLUCOSE, URINE NEGATIVE (NEGATIVE); KETONES,URINE NEGATIVE (NEGATIVE); LEUKOCYTE ESTERASE,URINE NEGATIVE (NEGATIVE); NITRITE,URINE NEGATIVE (NEGATIVE); PROTEIN,URINE NEGATIVE (NEGATIVE); URINE SPECIFIC GRAVITY 1.005; UROBILINOGEN,URINE NEGATIVE mg/dL (<2.0)
[2018-05-25 15:53] LABS: ALANINE AMINOTRANSFERASE 51 U/L (9-52); ALBUMIN 4.7 g/dL (3.5-5.0); ALKALINE PHOSPHATASE 107 U/L (38-126); ANION GAP 10 (5-19); ASPARTATE AMINO TRANSFERASE 32 U/L (14-36); BILIRUBIN,DIRECT 0.2 mg/dL (0.0-0.4); BILIRUBIN,TOTAL 0.9 mg/dL (0.2-1.3); BLOOD UREA NITROGEN 15 mg/dL (7-20); CALCIUM 10.9 mg/dL (8.4-10.2); CARBON DIOXIDE 27 mmol/L (22-30); CHLORIDE 101 mmol/L (98-107); GLUCOSE 144 mg/dL (75-110); POTASSIUM 4.2 mmol/L (3.6-5.0); SODIUM 138.3 mmol/L (137-145)
--- NOTE | 2018-05-25 18:22 | ER Document Report ---
Entered by CHARLENE DELUNA SCRIBE 05/25/18 [id number] Acting as scribe for:TONIA CAMILO MD ED GI/ - General Mode of Arrival: Wheelchair Information source: Patient TRAVEL OUTSIDE OF THE [place] IN LAST 30 DAYS: No <TONIA CAMILO - Last Filed: 05/25/18 19:01> <PERLA MARTINEZ - Last Filed: 05/26/18 18:12> - General Chief Complaint: Abdominal Pain Stated Complaint: ABDOMINAL PAIN Time Seen by Provider: 05/25/18 14:20 Primary Care Provider: FLORENTIN DYER DO [Primary Care Provider] - Follow up as needed KAVITA SANABRIA MD [ACTIVE STAFF] - Follow up tomorrow Notes: 58-year-old female who presents to the emergency department today with complaints of left sided abdominal pain for the last x1 month, increasing in severity since a colonoscopy x1 week ago. Patient states she does not know the findings of the colonoscopy. Patient states her pain is exacerbated with eati ng. Patient was prescribed Bentyl by her GI doctor which did not change her pain. Patient states she has had diarrhea "off and on". (CHARLENE DELUNA) 58-year-old female who presents to the emergency department today with complaints of left sided abdominal pain for the last x1 month, increasing in severity since a colonoscopy x1 week ago. Patient states she does not know the findings of the colonoscopy. Patient states her pain is exacerbated with eating. Patient was prescribed Bentyl by her GI doctor which did not change her pain. Patient states she has had diarrhea "off and on". (TONIA CAMILO) - Related Data Allergies/Adverse Reactions: oxycodone HCl [From Percocet] Allergy (Severe, Verified 05/25/18 14:15) THROAT CLOSES Shellfish * [Shellfish] Allergy (Mild, Verified 05/25/18 14:15) Hives Past Medical History - General Information source: Patient - Social History Smoking Status: Current Every Day Smoker Frequency of alcohol use: None Drug Abuse: None Family History: Reviewed & Not Pertinent Patient has suicidal ideation: No Patient has homicidal ideation: No - Past Medical History Cardiac Medical History: Reports: Hx Atrial Fibrillation, Hx Hypercholesterolemia, Hx Hypertension Pulmonary Medical History: Reports: Hx Asthma Endocrine Medical History: Reports: Hx Diabetes Mellitus Type 2 GI Medical History: Reports: Hx Gastroesophageal Reflux Disease, Hx Hiatal Hernia, Hx Ulcer - bleeding Musculoskeletal Medical History: Reports Hx Arthritis Psychiatric Medical History: Reports: Hx Depression Past Surgical History: Reports: Hx Hysterectomy, Hx Orthopedic Surgery - right shoulder, b/l great toe, right thumb x2, Hx Tonsillectomy - Immunizations Hx Diphtheria, Pertussis, Tetanus Vaccination: No <TONIA CAMILO - Last Filed: 05/25/18 19:01> - Vital signs Vitals: Temp Pulse Resp BP Pulse Ox 97.6 F 91 20 142/61 H 97 05/25/18 14:08 05/25/18 14:08 05/25/18 14:08 05/25/18 14:08 05/25/18 14:08 Course - Laboratory Result Diagrams: 05/25/18 15:16 05/25/18 15:16 - Transfer of Care Care transferred to following provider: Dr. Martinez <TONIA CAMILO - Last Filed: 05/25/18 19:01> - Laboratory Result Diagrams: 05/25/18 15:16 05/25/18 15:16 - Diagnostic Test Radiology reviewed: Image reviewed, Reports reviewed <PERLA MARTINEZ - Last Filed: 05/26/18 18:12> - Re-evaluation Re-evalutation: 05/25/18 23:17 Laboratory 05/25/18 05/25/18 05/25/18 15:16 15:16 15:16 WBC 8.8 RBC 4.76 Hgb 15.1 Hct 43.5 MCV 91 MCH 31.8 MCHC 34.8 RDW 13.8 Plt Count 317 Seg Neutrophils % 47.2 Lymphocytes % 41.1 Monocytes % 5.7 Eosinophils % 4.9 Basophils % 1.1 Absolute Neutrophils 4.2 Absolute Lymphocytes 3.6 Absolute Monocytes 0.5 Absolute Eosinophils 0.4 Absolute Basophils 0.1 Sodium 138.3 Potassium 4.2 Chloride 101 Carbon Dioxide 27 Anion Gap 10 BUN 15 Creatinine 0.63 Est GFR ( Amer) > 60 Est GFR (Non-Af Amer) > 60 Glucose 144 H Calcium 10.9 H Total Bilirubin 0.9 Direct Bilirubin 0.2 Neonat Total Bilirubin Not Reportable Neonat Direct Bilirubin Not Reportable Neonat Indirect Bili Not Reportable AST 32 ALT 51 Alkaline Phosphatase 107 Total Protein 8.0 Albumin 4.7 Lipase 117.0 Urine Color YELLOW Urine Appearance CLEAR Urine pH 5.0 Ur Specific [place] 1.005 Urine Protein NEGATIVE Urine Glucose (UA) NEGATIVE Urine Ketones NEGATIVE Urine Blood NEGATIVE Urine Nitrite NEGATIVE Urine Bilirubin NEGATIVE Urine Urobilinogen NEGATIVE Ur Leukocyte Esterase NEGATIVE Urine WBC (Auto) 0 Urine RBC (Auto) 0 Squamous Epi Cells Auto 2 Urine Mucus (Auto) RARE Urine Ascorbic Acid NEGATIVE Abdomen/Pelvis CT 05/25/18 16:35 IMPRESSION: Irregular heterogeneous mild enlargement of the left adrenal gland. MRI may provide additional detail. No other clear etiology is identified for acute left-sided pain. Temp Pulse Resp BP Pulse Ox 97.6 F 91 20 142/61 H 97 05/25/18 14:08 05/25/18 14:08 05/25/18 14:08 05/25/18 14:08 05/25/18 14:08 Patient received in sign out by Dr. Camilo with CT of the abdomen and pelvis pending. Patient is a 58-year-old female with chronic abdominal pain who underwent a colonoscopy approximately [address] Sanabria. She reports that polyps were found but no clear source of her pain. Patient was reevaluated multiple times and has remained comfortable, tolerating fluids and food. Patient declining pain medication. Incidental finding of mild enlargement of the left adrenal gland was discussed with the patient. Recommend outpatient MRI. Patient will be given a copy of her CAT scan report. PHYSICAL EXAMINATION: GENERAL: Well-appearing, well-nourished and in no acute distress. HEAD: Atraumatic, normocephalic. EYES: Pupils equal round extraocular movements intact, conjunctiva are normal. ENT: Nares patent NECK: Normal range of motion LUNGS: No respiratory distress Abdomen; soft, nontender, bowel sounds present, no guarding or rebound. Musculoskeletal: Normal range of motion NEUROLOGICAL: Normal speech, normal gait. PSYCH: Normal mood, normal affect. SKIN: Warm, Dry, normal turgor, no rashes or lesions noted. (PERLA MARTINEZ) - Vital Signs Vital signs: Temp Pulse Resp BP Pulse Ox 98.2 F 79 19 149/86 H 100 05/25/18 23:37 05/25/18 23:37 05/25/18 23:37 05/25/18 23:37 05/25/18 23:37 - Laboratory Laboratory results interpreted by me: 05/25/18 15:16 Glucose 144 H Calcium 10.9 H - Transfer of Care Notes: 05/25/18 19:[address] scan of the abdomen and pelvis with oral and IV contrast. If there are no abnormalities noted, she can be discharged home to follow-up with her primary care provider and her javascript ui developer for further management of her chronic abdominal pain. (TONIA CAMILO) Discharge <TONIA CAMILO - Last Filed: 05/25/18 19:01> <PERLA MARTINEZ - Last Filed: 05/26/18 18:12> - Discharge Clinical Impression: Abdominal pain Qualifiers: Abdominal location: left lower quadrant Qualified Code(s): R10.32 - Left lower quadrant pain Condition: Good Disposition: HOME, SELF-CARE Instructions: Abdominal Pain ([facility]) Forms: Elevated Blood Pressure Referrals: FLORENTIN DYER DO [Primary Care Provider] - Follow up as needed KAVITA SANABRIA MD [ACTIVE STAFF] - Follow up tomorrow Scribe Attestation: 05/25/18 16:36 I personally performed the services described in the documentation, reviewed and edited the documentation which was dictated to the scribe in my presence, and it accurately records my words and actions. (CHARLENE DELUNA) 05/25/18 16:36 I personally performed the services described in the documentation, reviewed and edited the documentation which was dictated to the scribe in my presence, and it accurately records my words and actions. (TONIA CAMILO) I personally performed the services described in the documentation, reviewed and edited the documentation which was dictated to the scribe in my presence, and it accurately records my words and actions.
--- NOTE | 2018-05-25 22:10 | RADIOLOGY REPORT (SQ) ---
EXAM DESCRIPTION: CT ABDOMEN PELVIS WITH IV CONTRAST COMPLETED DATE/TME: 05/25/2018 16:35 CLINICAL HISTORY: 58 years, Female, 1 month history of left-sided abdominal pain EXAM DESCRIPTION: CLINICAL HISTORY: 1 month history of left-sided abdominal pain COMPARISON: None Available TECHNIQUE: Contiguous axial images of the abdomen and pelvis were obtained after the administration of intravenous contrast followed by reconstruction images.This exam was performed according to our departmental dose-optimization program, which includes automated exposure control, adjustment of the mA and/or kV according to patient size and/or use of iterative reconstruction technique. FINDINGS: The left adrenal gland is diffusely mildly enlarged and mildly irregular. Significance of this is unclear. The liver, spleen, pancreas and kidneys are within normal limits. There is no hydronephrosis. The gallbladder is unremarkable. Adrenal glands are within normal limits. Aorta is normal in caliber and tapering. No significant free fluid. No free air. No bowel obstruction. There is no stranding of the mesenteric fat. The appendix appears normal. No evidence of periappendiceal inflammation. IMPRESSION: Irregular heterogeneous mild enlargement of the left adrenal gland. MRI may provide additional detail. No other clear etiology is identified for acute left-sided pain.
[2018-05-25] MEDS ORDERED: ONDANSETRON ODT 4 MG TAB (6 TAB/ER DISP) PO PRN (23:20)
[2018-05-25 23:38] VITALS: BP 149/86
== END 2018-05-25 23:38 | disposition home or self-care (01) ==
LOC: ER 13:55
DX: R10.32 Left lower quadrant pain (principal); R19.7 Diarrhea, unspecified; F17.200 Nicotine dependence, unspecified, uncomplicated; I48.91 Unspecified atrial fibrillation; E78.00 Pure hypercholesterolemia, unspecified; I10 Essential (primary) hypertension; E11.9 Type 2 diabetes mellitus without complications; Z91.013 Allergy to seafood; Z90.710 Acquired absence of both cervix and uterus
CPT/HCPCS: 99284; 96361; 96374; 36415; 83690; 85025; 80053; 81001; 74177; J2405; J7030; A9270

== ENCOUNTER → 2018-06-27 | Outpatient (CLI) | payer MEDICARE, OTHER ==
--- NOTE | 2018-06-27 12:17 | RADIOLOGY REPORT (SQ) ---
EXAM DESCRIPTION: MRI ABDOMEN WITHOUT COMPLETED DATE/TIME: 06/27/2018 8:54 am REASON FOR STUDY: ENLARGED ADRENAL GLAND ON CT FROM 05/25/18 (E27.9) E27.9 DISORDER OF ADRENAL GLAN D, UNSPECIFIED COMPARISON: CT dated 05/25/2018. TECHNIQUE: Noncontrast imaging with attention to the adrenal glands, including in and out of phase T 1 sequences. LIMITATIONS: None. FINDINGS: ADRENAL GLANDS: Slightly nodular left adrenal gland. Homogeneous signal. Decreased signa l on out of phase imaging. GALLBLADDER: No masses. No stones. No gallbladder wall thickening or pericholecystic fluid. LIVER AND BILIARY STRUCTURES: Normal. No ductal dilatation. SPLEEN: Normal. PANCREAS: Normal. Peripancreatic tissues normal. PERITONEUM: No ascites, gross adenopathy or implants. OTHER: No other significant finding. IMPRESSION: SLIGHTLY NODULAR LEFT ADRENAL GLAND WITH DECREASED SIGNAL ON OUT OF PHASE IMAGING CONSIS TENT WITH SMALL ADENOMA. OTHERWISE UNREMARKABLE NONCONTRAST MR OF THE ABDOMEN. TECHNICAL DOCUMENTATION: JOB ID: [id number] [employer]- All Rights Reserved Reading location - IP/workstation name: [email or web address]
== END ==
LOC: RAD 08:05
PROVIDERS: ATTEND Student in an Organized Health Care Education/Training Program
DX: E27.8 Other specified disorders of adrenal gland (principal)
CPT/HCPCS: 74181

== ENCOUNTER → 2018-11-25 | Outpatient (CLI) | payer MEDICARE, OTHER ==
[2018-11-25 08:49] LABS: ALBUMIN 4.6 g/dL (3.5-5.0); ALKALINE PHOSPHATASE 114 U/L (38-126); ANION GAP 13 (5-19); ASPARTATE AMINO TRANSFERASE 26 U/L (14-36); BILIRUBIN,DIRECT 0.3 mg/dL (0.0-0.4); BILIRUBIN,TOTAL 0.8 mg/dL (0.2-1.3); BLOOD UREA NITROGEN 18 mg/dL (7-20); CALCIUM 9.9 mg/dL (8.4-10.2); CARBON DIOXIDE 20 mmol/L (22-30); CHLORIDE 102 mmol/L (98-107); CHOLESTEROL 214.17 mg/dL (0-200); GLUCOSE 218 mg/dL (75-110); POTASSIUM 4.5 mmol/L (3.6-5.0); TRIGLYCERIDES 228 mg/dL (<150)
[2018-11-25 08:59] LABS: DIRECT LDL 129 mg/dL (<100)
[2018-11-25 09:07] LABS: VLDL CHOLESTEROL 45.6 mg/dL (10-31)
== END ==
LOC: OD 07:20
PROVIDERS: ATTEND Family Medicine
DX: E11.9 Type 2 diabetes mellitus without complications (principal); E78.5 Hyperlipidemia, unspecified
CPT/HCPCS: 36415; 80053; 80061; 83036

== ENCOUNTER → 2019-02-10 | Outpatient (CLI) | payer MEDICARE, OTHER ==
--- NOTE | 2019-02-10 10:31 | RADIOLOGY REPORT (SQ) ---
EXAM DESCRIPTION: CHEST PA/LATERAL COMPLETED DATE/TIME: 02/10/2019 10:03 am REASON FOR STUDY: COUGH COMPARISON: 08/06/2017 EXAM PARAMETERS: NUMBER OF VIEWS: two views TECHNIQUE: Digital Frontal and Lateral radiographic views of the chest acquired. RADIATION DOSE: NA LIMITATIONS: none FINDINGS: LUNGS AND PLEURA: No opacities, masses or pneumothorax. No pleural effusion. MEDIASTINUM AND HILAR STRUCTURES: No masses or contour abnormalities. HEART AND VASCULAR STRUCTURES: Heart normal size. No evidence for failure. BONES: No acute findings. HARDWARE: None in the chest. OTHER: No other significant finding. IMPRESSION: No focal airspace disease or other evidence of acute intrathoracic process. TECHNICAL DOCUMENTATION: JOB ID: [id number] [employer]- All Rights Reserved Reading location - IP/workstation name: [email or web address]
== END ==
LOC: OD 09:51
PROVIDERS: ATTEND Family Medicine
DX: R05 Cough (principal)
CPT/HCPCS: 71046

== ENCOUNTER → 2019-04-06 | Outpatient (CLI) | payer MEDICARE, OTHER ==
[2019-04-06 08:47] LABS: ALBUMIN 4.2 g/dL (3.5-5.0); ALKALINE PHOSPHATASE 107 U/L (38-126); ANION GAP 11 (5-19); ASPARTATE AMINO TRANSFERASE 34 U/L (14-36); BILIRUBIN,DIRECT 0.1 mg/dL (0.0-0.4); BILIRUBIN,TOTAL 0.8 mg/dL (0.2-1.3); BLOOD UREA NITROGEN 20 mg/dL (7-20); CALCIUM 9.8 mg/dL (8.4-10.2); CARBON DIOXIDE 21 mmol/L (22-30); CHLORIDE 105 mmol/L (98-107); CHOLESTEROL 203.37 mg/dL (0-200); GLUCOSE 222 mg/dL (75-110); POTASSIUM 4.8 mmol/L (3.6-5.0); TOTAL PROTEIN 7.2 g/dL (6.3-8.2); TRIGLYCERIDES 190 mg/dL (<150)
[2019-04-06 08:59] LABS: DIRECT LDL 129 mg/dL (<100)
== END ==
LOC: OD 07:18
PROVIDERS: ATTEND Family Medicine
DX: E78.2 Mixed hyperlipidemia (principal); E11.9 Type 2 diabetes mellitus without complications
CPT/HCPCS: 36415; 80053; 80061; 82043; 82570; 83036

== ENCOUNTER 2019-04-10 09:31 | Day surgery (SDC) | payer MEDICARE, OTHER ==
[~2019-04-10 09:31] MED LIST: PROPOFOL INJ 200 MG/20 ML VIAL IV ONE
[2019-04-10] MEDS ORDERED: METOCLOPRAMIDE HCL INJ/PF 10 MG/2 ML SDV ONE (10:55)
[2019-04-10] MEDS ORDERED: FAMOTIDINE INJ/PF 20 MG/2 ML SDV IV ONE (10:56)
--- NOTE | 2019-04-10 11:50 | Operative Report ---
Operative Report DATE OF SURGERY: 04/10/19 Operative Report: Risk, benefits and alternatives of the procedure including the risk of bleeding, perforation requiring surgery are explained to the patient in detail and informed consent was obtained. Patient is taken back to the endoscopy suite and placed in a left, lateral decubital position. Timeout was called. Propofol medication is administered. Rectal examination is done which did not reveal any masses, tears or fissures. An Olympus videoscope was introduced into the patient's rectum. Scope was then carefully advanced all the way to the cecum. Prep is not good. Scope was then sequentially pulled back via the various segments of the colon including the ascending colon, hepatic flexure, transverse colon, splenic flexure, descending colon and finally into the rectosigmoid portions of the colon. Retroflexion maneuvers performed. The risks benefits and alternatives of the procedure explained to the patient in detail and informed consent is obtained.A GIF Olympus video scope was inserted into the patient's mouth and hypopharynx, the esophagus is identified intubated and insufflated ,the scope was then advanced through the esophagus stomach and duodenum ,retroflexion maneuver is done the esophagus stomach and first and second portions of the duodenum examined PREOPERATIVE DIAGNOSIS: Change in bowel habits, gastroesophageal reflux disease POSTOPERATIVE DIAGNOSIS: Inflammation noted on the right-hand side of the colon status post biopsy. Diverticulosis without any evidence of diverticulitis. Internal hemorrhoids. Duodenitis. Gastritis status post biopsy OPERATION: Colonoscopy with biopsy. EGD with biopsy SURGEON: KAVITA STROUD ANESTHESIA: LMAC TISSUE REMOVED OR ALTERED: As noted above. COMPLICATIONS: None. ESTIMATED BLOOD LOSS: None. INTRAOPERATIVE FINDINGS: As noted above. PROCEDURE: Patient tolerated the procedure well. No immediate postprocedure complications are noted. Patient is discharged in good condition. Discharge date 04/10/2019. Discharge diet: Regular. Discharge activity: Regular. 2 to 3-week follow-up to discuss findings. Patient is instructed to call the office or proceed to the emergency room should there be any further problems or questions. Wait on the pathology.
[2019-04-10 12:15] VITALS: BP 100/61
--- NOTE | 2019-04-10 13:06 | EKG REPORT ---
SEVERITY:- ABNORMAL ECG - SINUS RHYTHM PROBABLE INFERIOR INFARCT, AGE INDETERMINATE : Confirmed by: Cabrera Tucker MD 10-Apr-2019 13:06:04
== END 2019-04-10 12:14 | disposition home or self-care (01) ==
LOC: END 09:31
PROVIDERS: ATTEND Internal Medicine Gastroenterology
DX: Z12.11 Encounter for screening for malignant neoplasm of colon (principal); K52.9 Noninfective gastroenteritis and colitis, unspecified; K57.30 Diverticulosis of large intestine without perforation or abscess without bleeding; K64.8 Other hemorrhoids; K29.80 Duodenitis without bleeding; K29.50 Unspecified chronic gastritis without bleeding; Z86.010 Personal history of colon polyps; K21.9 Gastro-esophageal reflux disease without esophagitis; F17.210 Nicotine dependence, cigarettes, uncomplicated; E11.9 Type 2 diabetes mellitus without complications; B18.2 Chronic viral hepatitis C; I48.91 Unspecified atrial fibrillation; E03.8 Other specified hypothyroidism; Z79.84 Long term (current) use of oral hypoglycemic drugs; Z79.899 Other long term (current) drug therapy; Z79.82 Long term (current) use of aspirin; Z79.4 Long term (current) use of insulin; Z88.5 Allergy status to narcotic agent
CPT/HCPCS: 43239; 45380; 82962; 88305 ×2; 93005; 93010; J2765; J2704; S0028

== ENCOUNTER → 2019-06-05 | Outpatient (CLI) | payer MEDICARE, OTHER ==
--- NOTE | 2019-06-05 12:24 | RADIOLOGY REPORT (SQ) ---
EXAM DESCRIPTION: KNEE RIGHT 2 VIEWS IMAGES COMPLETED DATE/TIME: 06/05/2019 10:07 am REASON FOR STUDY: PAIN IN RT KNEE M25.561 PAIN IN RIGHT KNEE COMPARISON: None. NUMBER OF VIEWS: Two views. TECHNIQUE: AP and lateral radiographic images acquired of the right knee. LIMITATIONS: None. FINDINGS: MINERALIZATION: Normal. BONES: No acute fracture or dislocation. JOINT: No effusion. SOFT TISSUES: No soft tissue swelling or radiopaque foreign body. OTHER: Enthesophytes at the patellar insertion of the quadriceps tendon. IMPRESSION: No acute osseous abnormality of the right knee. TECHNICAL DOCUMENTATION: JOB ID: [id number] 2010 [employer]- All Rights Reserved Reading location - IP/workstation name: [email or web address]
== END ==
LOC: OD 09:50
PROVIDERS: ATTEND Family Medicine
DX: M76.891 Other specified enthesopathies of right lower limb, excluding foot (principal); M25.561 Pain in right knee

== ENCOUNTER → 2019-07-10 | Outpatient (CLI) | payer MEDICARE, OTHER ==
--- NOTE | 2019-07-10 12:49 | RADIOLOGY REPORT (SQ) ---
EXAM DESCRIPTION: NM GASTRIC EMPTYING STUDY IMAGES COMPLETED DATE/TIME: 07/10/2019 12:04 pm REASON FOR STUDY: GASTRO-ESOPHAGEAL REFLUX DISEASE WITHOUT ESOPHAGITIS K21.9 GASTRO-ESOPHAGEAL REFL UX DISEASE WITHOUT ESOPHAGITIS R11.0 NAUSEA COMPARISON: None. RADIONUCLIDE AND DOSE: 2 millicuries Tc-99m Sulfur Colloid. Egg salad The route of agent administration: Oral. TECHNIQUE: 1 minute serial static imaging performed at time of meal, 1 hour, 2 hours, 3 hours, and 4 hours as needed. Once stomach reaches 90% emptying, the test is complete. Image intensity values pl otted with respect to time with linear regression algorithm. LIMITATIONS: None. FINDINGS: Patient was observed for 4 hours. Immediate post meal serves as baseline. Gastric emptying at 30 minutes was 20.6%. Gastric emptying at 60 minutes was 42.8% Gastric emptying at 90 minutes was 60.1%. Gastric emptying at 120 minutes was 72.6%. Gastric emptying at 240 minutes was 94.3%. Normal values: 60 minutes: 30-90% retained. If less than 30%, abnormally rapid emptying. If greater than 90%, delaye d gastric emptying. 120 minutes: <60% retained. If greater than 60%, delayed gastric emptying. 240 minutes: <10% retained. If greater than 10%, delayed gastric emptying. IMPRESSION: NORMAL GASTRIC EMPTYING. TECHNICAL DOCUMENTATION: JOB ID: [id number] 2010 [employer]- All Rights Reserved rev-06/25 Reading location - IP/workstation name: [email or web address]
== END ==
LOC: RAD 07:43
PROVIDERS: ATTEND Internal Medicine Gastroenterology
DX: K21.9 Gastro-esophageal reflux disease without esophagitis (principal); R11.0 Nausea
CPT/HCPCS: 78264; A9541

== ENCOUNTER → 2019-08-09 | Outpatient (CLI) | payer MEDICARE, OTHER ==
[2019-08-09 09:53] LABS: ALBUMIN 4.6 g/dL (3.5-5.0); ALKALINE PHOSPHATASE 114 U/L (38-126); ANION GAP 14 (5-19); ASPARTATE AMINO TRANSFERASE 39 U/L (14-36); BILIRUBIN,DIRECT 0.1 mg/dL (0.0-0.4); BLOOD UREA NITROGEN 19 mg/dL (7-20); CARBON DIOXIDE 21 mmol/L (22-30); CHLORIDE 96 mmol/L (98-107); CHOLESTEROL 226.77 mg/dL (0-200); POTASSIUM 4.2 mmol/L (3.6-5.0); TOTAL PROTEIN 7.6 g/dL (6.3-8.2); TRIGLYCERIDES 237 mg/dL (<150)
[2019-08-09 10:03] LABS: VLDL CHOLESTEROL 47.4 mg/dL (10-31)
[2019-08-09 10:04] LABS: DIRECT LDL 147 mg/dL (<100)
[2019-08-09 10:20] LABS: GLUCOSE 504 mg/dL (75-110)
[2019-08-10 11:37] LABS: CREATININE URINE 84.2 mg/dL (Not Estab.); MICROALBUMIN URINE 28.3 ug/mL (Not Estab.)
== END ==
LOC: OD 08:10
PROVIDERS: ATTEND Family Medicine
DX: E78.2 Mixed hyperlipidemia (principal); E11.9 Type 2 diabetes mellitus without complications
CPT/HCPCS: 36415; 80053; 80061; 82043; 82570; 83036

== ENCOUNTER → 2019-11-08 | Outpatient (CLI) | payer MEDICARE, OTHER ==
[2019-11-08 08:38] LABS: ANION GAP 11 (5-19); BLOOD UREA NITROGEN 18 mg/dL (7-20); CALCIUM 9.3 mg/dL (8.4-10.2); CARBON DIOXIDE 21 mmol/L (22-30); CHLORIDE 103 mmol/L (98-107); GLUCOSE 265 mg/dL (75-110); POTASSIUM 4.3 mmol/L (3.6-5.0)
== END ==
LOC: OD 07:41
PROVIDERS: ATTEND Family Medicine
DX: E11.65 Type 2 diabetes mellitus with hyperglycemia (principal)
CPT/HCPCS: 36415; 80048; 83036

== ENCOUNTER → 2020-01-11 | Outpatient (CLI) | payer MEDICARE, OTHER ==
--- NOTE | 2020-01-11 16:44 | RADIOLOGY REPORT (SQ) ---
EXAM DESCRIPTION: MRI ABDOMEN WITHOUT IMAGES COMPLETED DATE/TIME: 01/11/2020 12:32 pm REASON FOR STUDY: E27.9 DISORDER OF ADRENAL GLAND, UNSPECIFIED E27.9 DISORDER OF ADRENAL GLAND, UNS PECIFIED COMPARISON: 06/27/2018 and 05/25/2018 TECHNIQUE: Noncontrast imaging with attention to the adrenal glands, including in and out of phase T 1 sequences. LIMITATIONS: None. FINDINGS: RIGHT ADRENAL GLAND: Normal configuration. No mass. LEFT ADRENAL GLAND: Stable configuration demonstrating a mildly nodular appearance. Signal loss on o ut of phase imaging consistent with lipid rich composition. GALLBLADDER: No masses. No stones. No gallbladder wall thickening or pericholecystic fluid. LIVER AND BILIARY STRUCTURES: Normal. No ductal dilatation. SPLEEN: Normal. PANCREAS: Normal. Peripancreatic tissues normal. PERITONEUM: No ascites, gross adenopathy or implants. OTHER: No other significant finding. IMPRESSION: Stable MR appearance of a mildly hyperplastic left adrenal gland demonstrating imaging c haracteristics of lipid rich adenoma. TECHNICAL DOCUMENTATION: JOB ID: [id number] 2010 [employer]- All Rights Reserved Reading location - IP/workstation name: [email or web address]
== END ==
LOC: RAD 11:44
PROVIDERS: ATTEND Internal Medicine Endocrinology, Diabetes & Metabolism
DX: E27.9 Disorder of adrenal gland, unspecified (principal)
CPT/HCPCS: 74181